=== PATIENT | male | born 2000 | race American Indian/Alaskan Native ===

== ENCOUNTER 2020-05-12 17:04 | Emergency (ER) | payer SELFPAY ==
--- NOTE | 2020-05-12 17:45 | ED Elopement Review ---
ED Pt Elopement review - Results review Lab results: Patient left AGAINST MEDICAL ADVICE prior to my evaluation. According to nurses assessment patient denied suicidal homicidal ideation. Denies hallucination. He denies plan to harm himself or others. - Call Back decision Pt Call Back Decision: No action required
== END 2020-05-12 17:31 | disposition left against medical advice (07) ==
LOC: ED 17:04
DX: R45.851 Suicidal ideations (principal); Z53.21 Procedure and treatment not carried out due to patient leaving prior to being seen by health care provider

== ENCOUNTER 2020-06-20 22:10 | Emergency (ER) | payer MEDICAID, OTHER ==
[2020-06-20 22:24] VITALS: BP 130/77
--- NOTE | 2020-06-20 23:06 | XRay Report ---
RIGHT HAND 3 VIEWS INDICATION / CLINICAL INFORMATION: r/o glass foreign body after laceration. COMPARISON: None available. FINDINGS: There is visible soft tissue trauma along the dorsal aspect of the hand, near the wrist. Small amount of gas is present within the superficial soft tissues. However, I do not see a radiopaque foreign ob ject. No osseous abnormality. IMPRESSION: Soft tissue trauma consistent with history of laceration along the dorsal aspect of the h and/wrist. No visible radiopaque foreign object. Signer Name: Katlyn Saleem MD Signed: 06/20/2020 11:01 PM Workstation Name: [id number]
[2020-06-20] MEDS ORDERED: DIPHtheria,PERTUSSIS(ACELL),TETANUS VACCINE/PF 0.5 ML VIAL IM ONE (23:42)
--- NOTE | 2020-06-20 23:45 | Emergency Department Report ---
ED General Adult HPI - General Chief complaint: Wound/Laceration Stated complaint: HAND INJURY Time Seen by Provider: 06/20/20 22:21 Source: EMS Mode of arrival: Ambulatory Limitations: No Limitations - History of Present Illness Initial comments: 20-year-old -[place] male patient with history of bipolar disorder and HIV presents with complaints of right hand laceration after punching a glass mirror. He denies any numbness/tingling/weakness in his hand or difficulty moving his hand or fingers. He rates his current pain as a/10 in severity. He is unsure if there are glass particles. Patient also unsure of last tetanus vaccine. -: Sudden Radiation: non-radiation - Related Data Allergies Allergy/AdvReac Type Severity Reaction Status Date / Time No Known Allergies Allergy Verified 06/20/20 22:16 ED Review of Systems ROS: Stated complaint: HAND INJURY Other details as noted in HPI Constitutional: denies: chills, fever Musculoskeletal: denies: joint swelling, arthralgia Skin: denies: change in color Neurological: denies: numbness, paresthesias ED Past Medical Hx - Past Medical History Previous Medical History?: Yes Hx Psychiatric Treatment: Yes (bipolar) Hx Asthma: Yes Hx HIV: Yes Additional medical history: hiv - Social History Smoking Status: Never Smoker Substance Use Type: Alcohol ED Physical Exam - General Limitations: No Limitations General appearance: alert, in no apparent distress - Head Head exam: Present: atraumatic, normocephalic - Eye Eye exam: Present: normal appearance. Absent: scleral icterus - Respiratory Respiratory exam: Absent: respiratory distress - Cardiovascular Cardiovascular Exam: Present: regular rate - Extremities Exam Extremities exam: Present: full ROM, other (1 cm laceration noted to dorsal aspect of right hand with mild swelling; mild active bleeding noted; no obvious foreign bodies noted; patient has full range of motion, sensation, and perfusion of the hand and finger) - Back Exam Back exam: Present: full ROM - Neurological Exam Neurological exam: Present: alert, oriented X3 - Psychiatric Psychiatric exam: Present: normal affect, normal mood - Skin Skin exam: Present: warm, dry, normal color. Absent: rash, cyanosis, diaphoretic ED Course Vital Signs 06/20/20 22:23 Temperature 98.4 F Pulse Rate 87 Respiratory 16 Rate Blood Pressure 130/77 O2 Sat by Pulse 98 Oximetry - Procedure Description Procedures done: Right hand. Laceration area prepped with Betadine. Laceration length 1 cm. No foreign bodies noted. Wound closed using Steri-Strips and Dermabond. Patient tolerated procedure well without any immediate complications. Minimal bleeding occurred. ED Medical Decision Making - Radiology Data Radiology results: report reviewed RIGHT HAND 3 VIEWS INDICATION / CLINICAL INFORMATION: r/o glass foreign body after laceration. COMPARISON: None available. FINDINGS: There is visible soft tissue trauma along the dorsal aspect of the hand, near the wrist. Small amount of gas is present within the superficial soft tissues. However, I do not see a radiopaque foreign object. No osseous abnormality. IMPRESSION: Soft tissue trauma consistent with history of laceration along the dorsal aspect of the hand/wrist. No visible radiopaque foreign object. - Medical Decision Making 20-year-old -[place] male patient with history of bipolar disorder and HIV presents with complaints of right hand laceration after punching a glass mirror. He denies any numbness/tingling/weakness in his hand or difficulty moving his hand or fingers. He rates his current pain as a/10 in severity. He is unsure if there are glass particles. Patient also unsure of last tetanus vaccine. Patient eloped prior to x-ray results and laceration repair Critical care attestation.: If time is entered above; I have spent that time in minutes in the direct care of this critically ill patient, excluding procedure time. ED Disposition Clinical Impression: Laceration of right hand Disposition: Z-07 ELOPED Is pt being admited?: No Condition: Stable Instructions: Tissue Adhesive Wound Care, Laceration Care, Adult Referrals: LAURO LEBLANC MD [Primary Care Provider] - 3-5 Days
== END 2020-06-20 22:22 | disposition left against medical advice (07) ==
LOC: EDBD → ED 22:10
DX: S61.411A Laceration without foreign body of right hand, initial encounter (principal); F31.9 Bipolar disorder, unspecified; J45.909 Unspecified asthma, uncomplicated; Z21 Asymptomatic human immunodeficiency virus [HIV] infection status; W18.02XA Striking against glass with subsequent fall, initial encounter; Y93.89 Activity, other specified; Y92.89 Other specified places as the place of occurrence of the external cause; Y99.8 Other external cause status